=== PATIENT | female | born 1970 | race African-American/Black ===

== ENCOUNTER 2018-11-11 10:27 | Emergency (ER) | payer OTHER ==
[~2018-11-11] VITALS: Ht 170.2 cm; Wt 149.7 kg
[~2018-11-11 10:27] MED LIST: APAP500 PO; FLEXERIL PO; IBUPROFEN 600600 M1 PO; LIDODERM 5%1 PATCH TOP; NOHOMEMEDICATIONS; NORCO 5-325 TA1 EACH PO; ULTRAM 50MG TAB50 MG PO
[2018-11-11] MEDS ORDERED: ULTRAM 50MG TAB50 MG PO ×2 (12:29→12:39)
[2018-11-11] MEDS ORDERED: NEO-POLYMYXIN-H10 ML OTIC ×2 (12:29→12:39)
[2018-11-11 12:30] VITALS: BP 138/77
== END 2018-11-11 12:31 | disposition home or self-care (01) ==
LOC: ER 10:27
DX: S22.060A Wedge compression fracture of T7-T8 vertebra, initial encounter for closed fracture (principal); H60.92 Unspecified otitis externa, left ear; M25.562 Pain in left knee; Z90.49 Acquired absence of other specified parts of digestive tract; Z90.710 Acquired absence of both cervix and uterus; Z98.51 Tubal ligation status; Z91.018 Allergy to other foods; V89.2XXA Person injured in unspecified motor-vehicle accident, traffic, initial encounter; Y93.89 Activity, other specified; Y92.89 Other specified places as the place of occurrence of the external cause; Y99.8 Other external cause status